=== PATIENT | female | born 1945 | race Caucasian/White ===

== ENCOUNTER 2020-10-20 07:49 | Outpatient (REF) | payer MEDICARE, SELFPAY ==
--- NOTE | ~2020-10-20 | XR_ITS ---
EXAMINATION: XR KNEES, STANDING AP XR KNEE, LEFT CLINICAL INFORMATION: Knee pain. COMPARISON: Standing AP knees 10/02/2015, portable right knee 01/23/2016. TECHNIQUE: Standing AP view of both knees is performed along with axial and axial patella views of the left knee. FINDINGS: LEFT: No fracture, dislocation, or destructive process. There is likely trace fluid suprapatellar bursa. Hoffa's fat pad appears normal. There are tricompartment osteoarthritic changes, greatest medial knee joint compartment with joint narrowing and mild subchondral sclerosis and osteophytes femoral condyles and tibial plateau. There is chondrocalcinosis involving the menisci. No definite erosive change. Axial view patella shows no lateralization or tilting. There is spurring at the quadriceps insertion patella and at the origin of the patellar tendon. The deep infrapatellar recess is preserved. RIGHT: There is a hinged total knee arthroplasty. The hardware is intact. There is no destructive process or osteolysis. XR/XR knee LT 2V IMPRESSION: LEFT: Tricompartment osteoarthritis with meniscal chondrocalcinosis and probable trace suprapatellar effusion. RIGHT: Hinged total knee arthroplasty. Hardware intact. No destructive process.
--- NOTE | ~2020-10-20 | XR_ITS ---
EXAMINATION: XR KNEES, STANDING AP XR KNEE, LEFT CLINICAL INFORMATION: Knee pain. COMPARISON: Standing AP knees 10/02/2015, portable right knee 01/23/2016. TECHNIQUE: Standing AP view of both knees is performed along with axial and axial patella views of the left knee. FINDINGS: LEFT: No fracture, dislocation, or destructive process. There is likely trace fluid suprapatellar bursa. Hoffa's fat pad appears normal. There are tricompartment osteoarthritic changes, greatest medial knee joint compartment with joint narrowing and mild subchondral sclerosis and osteophytes femoral condyles and tibial plateau. There is chondrocalcinosis involving the menisci. No definite erosive change. Axial view patella shows no lateralization or tilting. There is spurring at the quadriceps insertion patella and at the origin of the patellar tendon. The deep infrapatellar recess is preserved. RIGHT: There is a hinged total knee arthroplasty. The hardware is intact. There is no destructive process or osteolysis. XR/XR knee standing BI IMPRESSION: LEFT: Tricompartment osteoarthritis with meniscal chondrocalcinosis and probable trace suprapatellar effusion. RIGHT: Hinged total knee arthroplasty. Hardware intact. No destructive process.
== END 2020-10-20 07:50 | disposition home or self-care (01) ==
LOC: HO.HOSX 07:49
PROVIDERS: Visit Provider Orthopaedic Surgery
DX: Z13.89 Encounter for screening for other disorder (principal)

== ENCOUNTER → 2020-10-23 11:59 | Outpatient (BNVA) | payer MEDICARE, SELFPAY | PROVIDERS: PCP Internal Medicine; Visit Provider Orthopaedic Surgery | DX: M17.12 Unilateral primary osteoarthritis, left knee (principal); Z96.652 Presence of left artificial knee joint | CPT/HCPCS: 73560; 73565; 99202 ==

== ENCOUNTER → 2020-12-21 10:15 | Outpatient (BNVA) | payer MEDICARE, SELFPAY | PROVIDERS: Visit Provider Orthopaedic Surgery | DX: M17.12 Unilateral primary osteoarthritis, left knee (principal) | CPT/HCPCS: 20610; 99212; J1100 ==

== ENCOUNTER → 2021-07-11 12:32 | Outpatient (BNVA) | payer MEDICARE, SELFPAY | PROVIDERS: Visit Provider Orthopaedic Surgery | DX: Z13.89 Encounter for screening for other disorder (principal) ==

== ENCOUNTER 2021-08-09 | Outpatient (REF) | payer MEDICARE, SELFPAY ==
--- NOTE | 2021-07-11 13:58 | ECG_ITS ---
Test Reason : PREOP Blood Pressure : / mmHG Vent. Rate : 069 BPM Atrial Rate : 069 BPM P-R Int : 192 ms QRS Dur : 084 ms QT Int : 432 ms P-R-T Axes : 005 -10 018 degrees QTc Int : 462 ms Normal sinus rhythm Normal ECG When compared with ECG of 12-DEC-2015 15:25, No significant change was found Referred By: Adriel Gardner Electronically Signed By:MELINDA GREER
[2021-07-11 14:18] LABS: MANUAL DIFF FLAG NO
[2021-07-11 14:58] LABS: Basophils Absolute Auto 0.1 X10*3/uL (0.0-0.2); Basophils Percent Auto 1.1 % (0-2); Eosinophils Absolute Auto 0.5 X10*3/uL (0.0-0.4); Eosinophils Percent Auto 7.6 % (0-4); Hemoglobin 11.9 g/dl (12.0-16.0); Imm Gran Abs Auto 0.02 X10*3/uL (0.00-0.03); Imm Gran Pct Auto 0.3 % (0.0-0.4); Lymphocytes Absolute Auto 1.4 X10*3/uL (1.2-4.9); Lymphocytes Percent Auto 21.6 % (20-40); Mean Corpuscular HGB Conc 32.2 g/dl (31.0-35.0); Mean Corpuscular Hemoglobin 27.8 pg (27.0-33.0); Mean Corpuscular Volume 86.4 fL (80.0-98.0); Mean Platelet Volume 10.2 fL (9.4-12.3); Monocytes Absolute Auto 0.5 X10*3/uL (0.1-1.2); Monocytes Percent Auto 8.4 % (2-11); Neutrophils Absolute Auto 3.8 x10*3/uL (2.0-8.3); Platelet Count 200 X10*3/uL (160-400); Red Blood Count 4.28 X10*6/uL (4.20-5.50); Red Cell Distribution Width 12.7 % (11.0-16.0); White Blood Count 6.3 X10*3/uL (4.8-10.8)
[2021-07-11 15:21] LABS: Anion Gap 12 (12-20); Blood Urea Nitrogen 13 mg/dL (9-16); Calcium 9.9 mg/dL (8.4-10.2); Carbon Dioxide 29 mmol/L (22-29); Chloride 101 mmol/L (96-108); Estimated Glomerular Filt Rate > 60; Glucose Random 79 mg/dL (60-115); Potassium 4.4 mmol/L (3.3-5.1); Sodium 138 mmol/L (135-145)
[2021-08-09 13:11] VITALS: BP 166/88; PULSE 74; RESP 20; O2SAT 96; BMI 31.9
--- NOTE | 2021-08-09 13:26 | HO.ANESPROP2 ---
HPI - Anesthesia Eval Consult details Narrative: 75yo F for Left Knee Replacement Total PCP cleared Interstitial fibrosis and Cardiomegaly (new) on CXR. Reviewed with Dr Kenny. Needs pulmo input and echo. [facility] Active Problems Active Problems: All Active Problems (Updated 08/09/21 @ 13:09 by Kathy Munson RN) Primary osteoarthritis of left knee (Acute) Past Medical History Medical History (Updated 08/09/21 @ 13:09 by Kathy Munson RN) Cardiomegaly Cough COVID-19 vaccine series completed Dislocated shoulder Elevated cholesterol History of prior cigarette smoking HTN (hypertension) Hx of basal cell carcinoma Nasal fracture Osteoarthritis Torn rotator cuff Vertigo Family History Family history of problems with anesthesia: No Surgical History Surgical History History of total right knee replacement (TKR) History of Problems with Anesthesia: No Social History Social History Are you a primary manager progressive care to a significant other at home: No Do you presently have visiting nurse or other home services: No Patient Tobacco Use Status: Former Tobacco user Quit Date: age 35 Tobacco use type: Cigarette Advance Directives Date on File: 05/31/21 Current occupational status: retired Current occupation: right handed. Narrative Narrative: Recent URI with nasal congestion, dry cough. No fever. COVID antigen test Negative No CP/SOB within limits of pain Meds Allergies Allergy/AdvReac Type Severity Reaction Status Date / Time hydromorphone [From Dilaudid] AdvReac Intermediate nausea/vomiting/flushed Verified 08/09/21 12:55 skin Home Medications Medication Instructions Recorded Confirmed Last Taken Type acetaminophen 650 mg 650 mg PO Q12H 10/23/20 08/09/21 Unknown History tablet,extended release (Tylenol 8 Hour) hydrochlorothiazide 12.5 mg capsule 12.5 mg PO DAILY 10/23/20 08/09/21 Unknown History ibuprofen 400 mg tablet 400 mg PO BID tab 10/23/20 08/09/21 Unknown History docusate sodium 100 mg capsule 100 mg PO DAILY 08/09/21 08/09/21 Unknown History lisinopril 40 mg tablet 1 tab PO DAILY 08/09/21 08/09/21 Unknown History metoprolol succinate 25 mg 1 tab PO DAILY 08/09/21 08/09/21 Unknown History tablet,extended release 24 hr rosuvastatin 10 mg tablet 1 tab PO DAILY 08/09/21 08/09/21 Unknown History Exam Exam Date and Time: August 09, 2021 1326 Height,Weight and Vital Signs: Height 5 ft 4 in Weight 84.368 kg Last Vital Signs Pulse 74 08/09/21 13:11 Resp 20 08/09/21 13:11 BP 166/88 H 08/09/21 13:11 Pulse Ox 96 08/09/21 13:11 Pertinent Lab Results Pertinent Lab Results: Laboratory Tests 07/11/21 07/11/21 14:16 14:16 WBC 6.3 RBC 4.28 Hgb 11.9 L Hct 37.0 MCV 86.4 MCH 27.8 MCHC 32.2 RDW 12.7 Plt Count 200 MPV 10.2 Immature Gran % (Auto) 0.3 Neut % (Auto) 61.0 Lymph % (Auto) 21.6 [place] % (Auto) 8.4 Eos % (Auto) 7.6 H Baso % (Auto) 1.1 Lymph # (Auto) 1.4 [place] # (Auto) 0.5 Eos # (Auto) 0.5 H Baso # (Auto) 0.1 Abs Immat Gran (auto) 0.02 Absolute Neuts (auto) 3.8 Absolute Nucleated RBC 0.000 Nucleated RBC % (auto) 0.0 Sodium 138 Potassium 4.4 Chloride 101 Carbon Dioxide 29 Anion Gap 12 BUN 13 Creatinine 0.81 Estim Creat Clear Calc TNP Estimated GFR > 60 Random Glucose 79 Calcium 9.9 Narrative Narrative: CXR 07/2021 Frontal and lateral views of the chest were performed. Cardiomegaly is noted. Interstitial fibrosis unchanged. Mediastinal and hilar structures are normal Osseous structures are intact. EKG 06/2021 Vent. Rate : 069 BPM ? ? Atrial Rate : 069 BPM ?? P-R Int : 192 ms? QRS Dur : 084 ms ? ? QT Int : 432 ms ? ? ? P-R-T Axes : 005 -10 018 degrees ?? QTc Int : 462 ms ? Normal sinus rhythm Normal ECG When compared with ECG of 12-DEC-2015 15:25, No significant change was found Airway Mallampati Class: III TM Dist: >3cm Neck ROM: Full Denture: Upper Partial: Lower Heart: RRR Lungs: CTAB Assessment and Plan Assessment Anesthesia Assessment: Anesthesia Plan Discussed and PAT Visit Final Anesthetic Review Family History of Problems with Anesthesia: No History of Problems with Anesthesia: No
[2021-08-09 16:46] LABS: MRSA Nasal PCR NEGATIVE (Negative); SA Nasal PCR POSITIVE (Negative)
== END 2021-08-09 00:01 ==
LOC: HO.PAT
PROVIDERS: Physician Assistant; Visit Provider Orthopaedic Surgery
DX: Z01.818 Encounter for other preprocedural examination (principal); Z01.810 Encounter for preprocedural cardiovascular examination; M19.90 Unspecified osteoarthritis, unspecified site
CPT/HCPCS: 36415; 80048; 85025; 86850; 86900; 86901; 87640; 87641; 93005

== ENCOUNTER → 2021-08-09 11:09 | Outpatient (BNVA) | payer MEDICARE, SELFPAY | PROVIDERS: PCP Student in an Organized Health Care Education/Training Program; Visit Provider Physician Assistant | DX: Z01.818 Encounter for other preprocedural examination (principal); M17.12 Unilateral primary osteoarthritis, left knee | CPT/HCPCS: 99212 ==

== ENCOUNTER → 2021-12-27 10:42 | Outpatient (BNVA) | payer MEDICARE, SELFPAY | PROVIDERS: PCP Student in an Organized Health Care Education/Training Program; Visit Provider Physician Assistant | DX: Z01.818 Encounter for other preprocedural examination (principal); M17.12 Unilateral primary osteoarthritis, left knee | CPT/HCPCS: 99212 ==

== ENCOUNTER 2022-01-01 11:18 | Inpatient (IN) | payer MEDICARE, SELFPAY ==
[2021-12-18 12:01] VITALS: BP 149/68; PULSE 71; RESP 20; O2SAT 97; BMI 33.5
--- NOTE | 2021-12-18 12:14 | HO.ANESPROP2 ---
Documented by User: Nica Herring NP 12/31/21 09:17 HPI - Anesthesia Eval Consult details Narrative: 76yo F for Left Knee Replacement Total Rescheduled from 06/2021 d/t new findings of ILD and cardiomegaly on CXR. Pulmo w/u shows ILD of no definite etiology. Questioning autoimmune factors. But clear to proceed with surgery. Pt has completed 12 weeks of pulmonary rehab and is able to achieve >10 METS with regular exercise PCP cleared [facility] Active Problems Active Problems: All Active Problems (Updated 12/18/21 @ 12:00 by Kathy Munson RN) Primary osteoarthritis of left knee (Acute) Past Medical History Medical History Cardiomegaly Cough COVID-19 vaccine series completed Dislocated shoulder Elevated cholesterol History of prior cigarette smoking HTN (hypertension) Hx of basal cell carcinoma Hx of skin cancer, basal cell Interstitial lung disease Nasal fracture Osteoarthritis Torn rotator cuff Vertigo Family History Family history of problems with anesthesia: No Surgical History Surgical History History of total right knee replacement (TKR) History of Problems with Anesthesia: No Social History Social History Are you a primary ambulatory care nurse to a significant other at home: No Do you presently have visiting nurse or other home services: No Patient Tobacco Use Status: Former Tobacco user Quit Date: age 42's Tobacco use type: Cigarette Years Smoked: 24 Use of substances other than those prescribed or required for medical reasons: No Have you been hit, kicked, punched, or otherwise hurt by someone within the past year? If so, by whom?: No Are you DNR?: No Advance Directives: Yes Advance Directives Information Provided: Yes Advance Directives on File: Yes Advance Directives Date on File: 05/31/21 Recently lost weight without trying: No Eating poorly because of decreased appetite: No Nutrition Risks: No Nutritional Risk Poor oral hygiene: No (full upper & partial lower denture) Current occupational status: retired Current occupation: right handed. Narrative Narrative: No recent illness No CP with exercise. No increased SOB. Baseline SMITH with pulmonary rehab x 12 weeks, treadmill for >20 mins Meds Allergies Allergy/AdvReac Type Severity Reaction Status Date / Time hydromorphone [From Dilaudid] AdvReac Intermediate nausea/vomiting/flushed Verified 12/27/21 10:52 skin (IV form) Home Medications Medication Instructions Recorded Confirmed Last Taken Type acetaminophen 650 mg 650 mg PO Q12H 10/23/20 12/18/21 Unknown History tablet,extended release (Tylenol 8 Hour) hydrochlorothiazide 12.5 mg capsule 12.5 mg PO DAILY 10/23/20 12/18/21 Unknown History ibuprofen 400 mg tablet 400 mg PO BID 10/23/20 12/18/21 Unknown History docusate sodium 100 mg capsule 100 mg PO DAILY 08/09/21 12/18/21 Unknown History lisinopril 40 mg tablet 1 tab PO DAILY 08/09/21 12/18/21 Unknown History metoprolol succinate 25 mg 1 tab PO DAILY 08/09/21 12/18/21 01/01/22 History tablet,extended release 24 hr rosuvastatin 10 mg tablet 1 tab PO DAILY 08/09/21 12/18/21 Unknown History chlorpheniramine-acetaminophen 2 1 tab PO DAILY 12/18/21 12/18/21 Unknown History mg-325 mg tablet (Coricidin HBP Cold and Flu) Exam Exam Date and Time: December 18, 2021 1214 Height,Weight and Vital Signs: Height 5 ft 2 in Weight 83.234 kg Last Vital Signs Pulse 71 12/18/21 12:01 Resp 20 12/18/21 12:01 BP 149/68 H 12/18/21 12:01 Pulse Ox 97 12/18/21 12:01 O2 Del Method 12/18/21 12:01 Pertinent Lab Results Pertinent Lab Results: 12/07/21 labs at outside facility BMP wnl except creat @ 1.12 CBC wnl TSH wnl Narrative Narrative: EKG 12/2021 Vent. Rate : 072 BPM ? ? Atrial Rate : 072 BPM ?? P-R Int : 192 ms? QRS Dur : 090 ms ? ? QT Int : 436 ms ? ? ? P-R-T Axes : 016 -06 012 degrees ?? QTc Int : 477 ms ? Normal sinus rhythm Minimal voltage criteria for LVH, may be normal variant ( [place] product ) Borderline ECG When compared with ECG of 11-JUL-2021 14:04, No significant change was found ECHO 08/2021 1. Nml LV vent cavity size and systolic function. Hyperdynamic contractility. 2. Quantative 2D LVEF 73%. Nml diastolic parameters. 3. Nml RV size and systolic function. RVSP could not be estimated. 4. LA is normal in size. RA is mildly dilated. 5. No signif valve abnormalities (Trace regurg of all valves) 6. No pericardial effusion 7. Aortic root and proximal ascending aorta are nml in size CXR 07/2021 Frontal and lateral views of the chest were performed. Cardiomegaly is noted. Interstitial fibrosis unchanged. Mediastinal and hilar structures are normal Osseous structures are intact. Per pulmo clearance, PFT = moderate diffusion capacity when corrected for [place] Airway Mallampati Class: III TM Dist: >3cm Neck ROM: Full Denture: Upper Partial: Lower Heart: RRR Lungs: LLL coarse, otherwise clear Assessment and Plan Assessment Anesthesia Assessment: Anesthesia Plan Discussed and PAT Visit Final Anesthetic Review Family History of Problems with Anesthesia: No History of Problems with Anesthesia: No Documented by User: Calderon Kenny MD 01/01/22 16:11 [facility] Past Medical History Medical History Cardiomegaly Cough COVID-19 vaccine series completed Dislocated shoulder Elevated cholesterol History of prior cigarette smoking HTN (hypertension) Hx of basal cell carcinoma Hx of skin cancer, basal cell Interstitial lung disease Nasal fracture Osteoarthritis Torn rotator cuff Vertigo Functional capacity: independent ambulation Surgical History Surgical History History of total right knee replacement (TKR) Social History Social History Are you a primary ambulatory care nurse to a significant other at home: No Do you presently have visiting nurse or other home services: No Patient Tobacco Use Status: Former Tobacco user Quit Date: age 42's Tobacco use type: Cigarette Years Smoked: 24 Use of substances other than those prescribed or required for medical reasons: No Have you been hit, kicked, punched, or otherwise hurt by someone within the past year? If so, by whom?: No Are you DNR?: No Advance Directives: Yes Advance Directives Information Provided: Yes Advance Directives on File: Yes Advance Directives Date on File: 05/31/21 Recently lost weight without trying: No Eating poorly because of decreased appetite: No Nutrition Risks: No Nutritional Risk Poor oral hygiene: No (full upper & partial lower denture) Current occupational status: retired Current occupation: right handed. Meds Allergies Allergy/AdvReac Type Severity Reaction Status Date / Time hydromorphone [From Dilaudid] AdvReac Intermediate nausea/vomiting/flushed Verified 12/27/21 10:52 skin (IV form) Home Medications Medication Instructions Recorded Confirmed Last Taken Type acetaminophen 650 mg 650 mg PO Q12H 10/23/20 12/18/21 Unknown History tablet,extended release (Tylenol 8 Hour) hydrochlorothiazide 12.5 mg capsule 12.5 mg PO DAILY 10/23/20 12/18/21 Unknown History ibuprofen 400 mg tablet 400 mg PO BID 10/23/20 12/18/21 Unknown History docusate sodium 100 mg capsule 100 mg PO DAILY 08/09/21 12/18/21 Unknown History lisinopril 40 mg tablet 1 tab PO DAILY 08/09/21 12/18/21 Unknown History metoprolol succinate 25 mg 1 tab PO DAILY 08/09/21 12/18/21 01/01/22 History tablet,extended release 24 hr rosuvastatin 10 mg tablet 1 tab PO DAILY 08/09/21 12/18/21 Unknown History chlorpheniramine-acetaminophen 2 1 tab PO DAILY 12/18/21 12/18/21 Unknown History mg-325 mg tablet (Coricidin HBP Cold and Flu) Exam Airway Loose/Missing/Broken Teeth: Yes Assessment and Plan Assessment Anesthesia Assessment: Chart Reviewed Final Anesthetic Review NPO: Yes ASA Class: III Final Preanesthetic Review: Meds/Allgs Chart Reviewed, Consent Obtained/Reviewed and Anes Risks/Benef Reviewed Patient Risk: Intermediate Procedure Risk: Intermediate Anesthetic Plan Anesthetic Plan: Spinal and Regional Block Disposition: Standard PACU and Inp. Admit - Standard Bed
--- NOTE | 2021-12-18 13:28 | ECG_ITS ---
Test Reason : PRE OP Blood Pressure : / mmHG Vent. Rate : 072 BPM Atrial Rate : 072 BPM P-R Int : 192 ms QRS Dur : 090 ms QT Int : 436 ms P-R-T Axes : 016 -06 012 degrees QTc Int : 477 ms Normal sinus rhythm Minimal voltage criteria for LVH, may be normal variant ( [place] product ) Borderline ECG When compared with ECG of 11-JUL-2021 14:04, No significant change was found Referred By: Adriel Gardner Electronically Signed By:NELIDA ROACH MD
[2021-12-18 15:13] LABS: MRSA Nasal PCR NEGATIVE (Negative); SA Nasal PCR NEGATIVE (Negative)
[2022-01-01] VITALS (12 sets, daily range): BP systolic 92–164; BP diastolic 50–78; PULSE 66–98; RESP 16–20; TEMP 35.3–37.3; O2SAT 94–97
--- NOTE | ~2022-01-01 | XR_ITS ---
EXAMINATION: XR KNEE, LEFT CLINICAL INFORMATION: Left total knee arthroplasty. COMPARISON: Radiographs left knee 10/23/2020. TECHNIQUE: Left knee is imaged portably in AP and coarse table lateral projections for 2 views. FINDINGS: Patient is status post hinged left knee arthroplasty. The hardware is intact. There is no fracture or dislocation or destructive process. Scattered subcutaneous gas is present as expected as well as overlying skin best. XR/XR knee LT 2V IMPRESSION: Status post left knee arthroplasty. Hardware intact. No fracture or dislocation.
[2022-01-01 11:35] LABS: Hematocrit 35.4 % (37.0-47.0); Hemoglobin 11.9 g/dl (12.0-16.0)
[2022-01-01 11:42] LABS: COVID-19 Test Negative (Negative); IDNOW Serial# 16C4AD1C
[2022-01-01] MEDS: Lactated Ringers 1,000 ML 100 ML IVCONT ×2 (12:20→17:43)
--- NOTE | 2022-01-01 15:12 | P.BOP_ITS ---
Brief Operative Note Date of Service: 01/01/22 Pre-op diagnosis: Left knee OA Post-op diagnosis: same Procedure: Left TKA Implants: Jarrell Triathalon cemented posterior stabilized 07/19/10 Surgeon: Adriel Gardner MD Anesthesia: regional and spinal Was an Curtain Roller Assembler used for this Procedure?: Yes Curtain Roller Assembler: Pro [employer] Estimated blood loss (mL): 200 IV fluids (mL): 1,000 Pathology: other Condition: stable Disposition: PACU
[2022-01-01] MEDS: oxyCODONE HCl Immed Release 5 MG TABLET 10 MG PO (17:37)
[2022-01-01] MEDS: 0.9 % Sodium Chloride Flush 3 ML SYRINGE IVFLUSH ×2 (17:44→20:25)
--- NOTE | 2022-01-01 18:25 | P.CONHOSP_ITS ---
History of Present Illness Data of Consult Service Date: 01/01/22 Primary Care Provider: Raymond Walters MD [facility] Reason for consult: medical management 76 year old female with HTN on lisinopril, HCTZ, interstitial lung disease, HLD on Rosovostatin, OA of left Knee that was no longer amenable to conservative management. She underwent elective left TKA today and is doing well postoperatively. No acute issues at this time. Review of Systems Review of Systems: Gen: no fever Resp: no sob, no cough CV: no chest, no SMITH, no leg edema GI: No n/v, no abd pain Neuro: No confusion Yes all other systems are reviewed and are negative [facility] Medical History (Updated 01/01/22 @ 18:29 by Josh Kaplan MD) Cardiomegaly Cough COVID-19 vaccine series completed Dislocated shoulder Elevated cholesterol History of prior cigarette smoking HTN (hypertension) Hx of basal cell carcinoma Hx of skin cancer, basal cell Interstitial lung disease Nasal fracture Osteoarthritis Torn rotator cuff Vertigo Functional capacity: independent ambulation Surgical History History of total right knee replacement (TKR) Social History Are you a primary managed care specialist to a significant other at home: No Do you presently have visiting nurse or other home services: No Patient Tobacco Use Status: Former Tobacco user Quit Date: age 42's Tobacco use type: Cigarette Years Smoked: 24 Use of substances other than those prescribed or required for medical reasons: No Have you been hit, kicked, punched, or otherwise hurt by someone within the past year? If so, by whom?: No Are you DNR?: No Advance Directives: Yes Advance Directives Information Provided: Yes Advance Directives on File: Yes Advance Directives Date on File: 05/31/21 Recently lost weight without trying: No Eating poorly because of decreased appetite: No Nutrition Risks: No Nutritional Risk Poor oral hygiene: No (full upper & partial lower denture) Current occupational status: retired Current occupation: right handed. Meds Allergies Allergy/AdvReac Type Severity Reaction Status Date / Time hydromorphone [From Dilaudid] AdvReac Intermediate nausea/vomiting/flushed Verified 12/27/21 10:52 skin (IV form) Active Medications: Current Medications Acetaminophen (Acetaminophen 325 Mg Tablet) 650 mg PO Q6H PRN PRN Reason: Pain, Mild (Pain Scale 1-3) Celecoxib (Celecoxib 200 Mg Capsule) 200 mg PO BID [facility] Docusate Sodium (Docusate Sodium 100 Mg Capsule) 100 mg PO BID [facility] Hydrochlorothiazide (Hydrochlorothiazide 12.5 Mg Tablet) 12.5 mg PO DAILY [facility]; Protocol Lactated Ringer's (Lr) 1,000 mls @ 100 mls/hr IVCONT .Q10H [facility] Last Admin: 01/01/22 17:43 Dose: 100 mls/hr Cefazolin Sodium/Dextrose (Ancef) 2 gm in 50 mls @ 100 mls/hr IV POSTOP ONE Stop: 01/01/22 19:29 Metoprolol Succinate (Metoprolol Succinate Er 25 Mg Tab.Er.24h) 25 mg PO DAILY [facility]; Protocol Non-Formulary Medication (Chlorpheniramine-Acetaminophen [Coricidin Hbp Cold And Flu]) 1 tab PO DAILY [facility] Ondansetron HCl (Ondansetron Hcl 4 Mg/2 Ml Vial) 4 mg IVPUSH Q8H PRN PRN Reason: Nausea and Vomiting Oxycodone HCl (Oxycodone Hcl Immed Release 5 Mg Tablet) 10 mg PO Q4H PRN PRN Reason: Pain, Moderate (Pain Scale 4-6 Last Admin: 01/01/22 17:37 Dose: 10 mg Oxycodone HCl (Oxycodone Hcl Er 10 Mg Tab.Er.12h) 10 mg PO BID [facility] Sodium Chloride (0.9 % Sodium Chloride Flush 3 Ml Syringe) 3 ml IVFLUSH QSHIFT [facility] Last Admin: 01/01/22 17:44 Dose: 3 ml Home Medications Medication Instructions Recorded Confirmed Last Taken Type acetaminophen 650 mg 650 mg PO Q12H 10/23/20 12/18/21 Unknown History tablet,extended release (Tylenol 8 Hour) hydrochlorothiazide 12.5 mg capsule 12.5 mg PO DAILY 10/23/20 12/18/21 Unknown History ibuprofen 400 mg tablet 400 mg PO BID 10/23/20 12/18/21 Unknown History docusate sodium 100 mg capsule 100 mg PO DAILY 08/09/21 12/18/21 Unknown History lisinopril 40 mg tablet 1 tab PO DAILY 08/09/21 12/18/21 Unknown History metoprolol succinate 25 mg 1 tab PO DAILY 08/09/21 12/18/21 01/01/22 History tablet,extended release 24 hr rosuvastatin 10 mg tablet 1 tab PO DAILY 08/09/21 12/18/21 Unknown History chlorpheniramine-acetaminophen 2 1 tab PO DAILY 12/18/21 12/18/21 Unknown Hist ory mg-325 mg tablet (Coricidin HBP Cold and Flu) Physical Exam Vital Signs and Narrative: Vital Signs: Last Vital Signs Temp 95.6 F L 01/01/22 17:20 Pulse 66 01/01/22 17:20 Resp 18 01/01/22 17:20 BP 121/57 L 01/01/22 17:20 Pulse Ox 97 01/01/22 17:20 O2 Del Method 01/01/22 17:20 BMI result Body Mass Index 33.5 Const: Other: General: AO X 3, no acute distress Resp: CTA bilateral CVS: S1,S2,RRR GI: +BS, NT, no distention Skin: No rash Neuro: motor grossly intact Psych: appropriate affect Results Labs CBC and Chem 7: 01/01/22 11:30 Labs: Laboratory Results - last 24 hr 01/01/22 11:21 COVID-19 ([facility]) Negative COVID-19 Clin Com See Note Imaging Radiologist's Impressions: Impressions Knee X-Ray 01/01/22 16:00 IMPRESSION: Status post left knee arthroplasty. Hardware intact. No fracture or dislocation. Assessment and Plan (1) HTN (hypertension): Status: Acute (2) Primary osteoarthritis of left knee: Status: Acute Plan 76/F with HTN, HLD, ILD, OA of knee s/p L TKR today 1/ HTN--BP presently on lower side, restart home meds tomorrow if BP high 2/HLD-continue rosuvastatin or equivalent 3/s/p LTK management by surgery 4/ ILD--no sob, goes to pulmonary rehab
[2022-01-01] MEDS: oxyCODONE HCl ER 10 MG TAB.ER.12H PO (20:24)
[2022-01-01] MEDS: Docusate Sodium 100 MG CAPSULE PO (20:24)
[2022-01-01] MEDS: Celecoxib 200 MG CAPSULE PO (20:24)
[2022-01-01] MEDS: ceFAZolin Sodium/Dextrose,Iso 2 GM/50 ML PIGGYBACK IV (20:24)
[2022-01-02] VITALS (8 sets, daily range): BP systolic 108–148; BP diastolic 55–74; PULSE 80–90; RESP 17–18; TEMP 36.2–37.2; O2SAT 92–95
[2022-01-02] MEDS: oxyCODONE HCl Immed Release 5 MG TABLET 10 MG PO ×3 (02:49→13:04)
[2022-01-02] MEDS: Lactated Ringers 1,000 ML 100 ML IVCONT ×2 (03:45→13:54)
[2022-01-02 06:55] LABS: MANUAL DIFF FLAG NO
[2022-01-02 06:59] LABS: Basophils Percent Auto 0.4 % (0-2); Eosinophils Absolute Auto 0.2 X10*3/uL (0.0-0.4); Eosinophils Percent Auto 1.9 % (0-4); Hemoglobin 10.3 g/dl (12.0-16.0); Imm Gran Abs Auto 0.03 X10*3/uL (0.00-0.03); Imm Gran Pct Auto 0.4 % (0.0-0.4); Lymphocytes Absolute Auto 0.5 X10*3/uL (1.2-4.9); Lymphocytes Percent Auto 6.3 % (20-40); Mean Corpuscular HGB Conc 33.2 g/dl (31.0-35.0); Mean Corpuscular Hemoglobin 28.4 pg (27.0-33.0); Mean Corpuscular Volume 85.4 fL (80.0-98.0); Mean Platelet Volume 10.1 fL (9.4-12.3); Monocytes Absolute Auto 0.5 X10*3/uL (0.1-1.2); Monocytes Percent Auto 6.1 % (2-11); Neutrophils Absolute Auto 7.1 x10*3/uL (2.0-8.3); Neutrophils Percent Auto 84.9 % (45-73); Platelet Count 153 X10*3/uL (160-400); Red Blood Count 3.63 X10*6/uL (4.20-5.50); Red Cell Distribution Width 12.4 % (11.0-16.0); White Blood Count 8.4 X10*3/uL (4.8-10.8)
[2022-01-02 07:16] LABS: Anion Gap 15 (12-20); Blood Urea Nitrogen 13 mg/dL (9-16); Carbon Dioxide 28 mmol/L (22-29); Chloride 99 mmol/L (96-108); Creatinine Clr Calc Pharmacy 58.7; Estimated Glomerular Filt Rate > 60; Glucose Fasting 111 mg/dL (60-99); Potassium 4.7 mmol/L (3.3-5.1); Sodium 137 mmol/L (135-145)
--- NOTE | 2022-01-02 07:33 | PHA.MEDREC ---
Pharmacy Consult ? Medication Reconciliation Pharmacy has completed the medication reconciliation. Reviewed med rec done by nursing (Kathy).
[2022-01-02] MEDS: Docusate Sodium 100 MG CAPSULE PO ×2 (07:36→21:40)
[2022-01-02] MEDS: hydroCHLOROthiazide 12.5 MG TABLET PO (07:36)
[2022-01-02] MEDS: Celecoxib 200 MG CAPSULE PO ×2 (07:36→21:39)
[2022-01-02] MEDS: Metoprolol Succinate ER 25 MG TAB.ER.24H PO (07:37)
[2022-01-02] MEDS: Atorvastatin Calcium 40 MG TABLET PO (07:37)
[2022-01-02] MEDS: oxyCODONE HCl ER 10 MG TAB.ER.12H PO ×2 (07:37→21:40)
--- NOTE | 2022-01-02 08:45 | P.PNOP_ITS ---
Subjective Subjective Date of Service: 01/02/22 Interval history: POD 1 s/p LT TKA no overnight events' feels her pain is not well managed denies sob, palpitations, chest pain. Physical Exam Vital Signs: Vital Signs: Last Vital Signs Temp 98.9 F 01/02/22 07:27 Pulse 90 01/02/22 07:27 Resp 18 01/02/22 07:27 BP 139/74 01/02/22 07:27 Pulse Ox 94 01/02/22 07:27 O2 Del Method 01/02/22 07:27 BMI result Body Mass Index 33.5 Const: General: cooperative, healthy appearing and no acute distress Resp: Effort & Inspection: normal respiratory effort and able to speak in complete sentences Cardio: Rate: regular rate Peripheral pulses: Peripheral pulses 2+ throughout GI: Palpation (GI): Soft to palpation Skin: General skin exam: no rashes or lesions noted Extrem: Other: bandage clean dry and intact. [place] intact. No erythema or joint effusion. Calf supple nontender. Neurovascularly intact. Procedures Date of Service Date of Service: 01/02/22 Progress Note: A&P Assessment and plan (1) History of arthroplasty of left knee: Status: Acute Assessment and Plan: * Continue pain mgmnt * Begin Aspirin for dvt ppx * begin PT for LT TKA * Dispo planning-Pending PT eval, pain mgmnt Time Spent With Patient Time: Total time spent is greater than 50% in coordination of care (as documented) at patient's floor/unit and/or counseling patient: Quality Stroke Does the patient have a stroke diagnosis?: No VTE Prior VTE?: No VTE Risk Level:: Surgical - very high VTE Device Contraindication: N/A - Device Ordered VTE Drug Contraindication: N/A - Med Ordered
--- NOTE | 2022-01-02 09:27 | MHC.CM.PN ---
Addendum entered by Madelin Stiles 01/02/22 09:33: NURSE LIAISON IS NOT ARRANGING FOR VNA REFERRAL SENT TO [facility] AT HOME [facility]IA [facility]. PATIENT AWARE. Original Note: PATIENT LIVES ALONE. SHE HAS A CANE, WALKER, AND SHOWER CHAIR IN THE HOME SHE TELLS THIS SATELLITE TV TECHNICIAN THAT NURSE LIAISON IS SETTING UP HER VNA WITH [facility] THIS SATELLITE TV TECHNICIAN REACHED OUT TO LIAISON TO CONFIRM. WAITING ANSWER. HCP IS ON FILE AND VERIFIED. COVID VACCINATED BROTHER [facility] WILL PROVIDE TRANSPORT HOME TOMORROW (01/03/22) IMM 01/02 IN CHART
[2022-01-02] MEDS: Ketorolac Tromethamine 15 MG/ML VIAL IVPUSH ×3 (09:39→21:41)
--- NOTE | 2022-01-02 11:15 | P.PNIM_ITS ---
Subjective Subjective Date of Service: 01/02/22 Interval History: f/u on medical consultation. Status post knee surgery Interval history: Doing well was having significant pain this morning 9.10, vital signs are otherwise stable. Review of Systems Pain in the operated knee. No fever or chill. No headache no shortness of breath no chest pain. Physical Exam Vital Signs: Vital Signs: Last Vital Signs Temp 98.9 F 01/02/22 07:27 Pulse 90 01/02/22 08:56 Resp 18 01/02/22 07:27 BP 139/74 01/02/22 08:56 Pulse Ox 94 01/02/22 08:56 O2 Del Method 01/02/22 07:27 BMI result Body Mass Index 33.5 Const: Other: General: AO X 3, no acute distress Resp: CTA bilateral CVS: S1,S2,RRR GI: +BS, NT, no distention Skin: No rash, dressing in place on the left knee. Neuro: motor grossly intact Psych: appropriate affect Objective Data Active Medications Acetaminophen (Acetaminophen 325 Mg Tablet) 650 mg PO Q6H PRN PRN Reason: Pain, Mild (Pain Scale 1-3) Aspirin (Aspirin 325 Mg Tablet) 325 mg PO BID [facility] Atorvastatin Calcium (Atorvastatin Calcium 40 Mg Tablet) 40 mg PO DAILY [facility] Last Admin: 01/02/22 07:37 Dose: 40 mg Documented By: MADELYN Celecoxib (Celecoxib 200 Mg Capsule) 200 mg PO BID [facility] Last Admin: 01/02/22 07:36 Dose: 200 mg Documented By: MADELYN Docusate Sodium (Docusate Sodium 100 Mg Capsule) 100 mg PO BID [facility] Last Admin: 01/02/22 07:36 Dose: 100 mg Documented By: MADELYN Hydrochlorothiazide (Hydrochlorothiazide 12.5 Mg Tablet) 12.5 mg PO DAILY [facility]; Protocol Last Admin: 01/02/22 07:36 Dose: 12.5 mg Documented By: MADELYN Lactated Ringer's (Lr) 1,000 mls @ 100 mls/hr IVCONT .Q10H [facility] Last Admin: 01/02/22 03:45 Dose: 100 mls/hr Documented By: BETSEY Ketorolac Tromethamine (Ketorolac Tromethamine 15 Mg/Ml Vial) 15 mg IVPUSH Q6H [facility] Last Admin: 01/02/22 09:39 Dose: 15 mg Documented By: MADELYN Metoprolol Succinate (Metoprolol Succinate Er 25 Mg Tab.Er.24h) 25 mg PO DAILY [facility]; Protocol Last Admin: 01/02/22 07:37 Dose: 25 mg Documented By: MADELYN Non-Formulary Medication (Chlorpheniramine-Acetaminophen [Coricidin Hbp Cold And Flu]) 1 tab PO DAILY [facility] Ondansetron HCl (Ondansetron Hcl 4 Mg/2 Ml Vial) 4 mg IVPUSH Q8H PRN PRN Reason: Nausea and Vomiting Oxycodone HCl (Oxycodone Hcl Immed Release 5 Mg Tablet) 10 mg PO Q4H PRN PRN Reason: Pain, Moderate (Pain Scale 4-6 Last Admin: 01/02/22 07:37 Dose: 10 mg Documented By: MADELYN Oxycodone HCl (Oxycodone Hcl Er 10 Mg Tab.Er.12h) 10 mg PO BID [facility] Last Admin: 01/02/22 07:37 Dose: 10 mg Documented By: MADELYN Sodium Chloride (0.9 % Sodium Chloride Flush 3 Ml Syringe) 3 ml IVFLUSH QSHIFT [facility] Last Admin: 01/02/22 07:40 Dose: Not Given Documented By: MADELYN Non-Admin Reason: IV Running Labs CBC & Chem 7: 01/02/22 05:55 01/02/22 05:55 Labs: Laboratory Results - last 24 hr 01/01/22 01/02/22 01/02/22 11:21 05:55 05:55 MCV 85.4 MCH 28.4 MCHC 33.2 RDW 12.4 Plt Count 153 L MPV 10.1 Immature Gran % (Auto) 0.4 Neut % (Auto) 84.9 H Lymph % (Auto) 6.3 L [place] % (Auto) 6.1 Eos % (Auto) 1.9 Baso % (Auto) 0.4 Lymph # (Auto) 0.5 L [place] # (Auto) 0.5 Eos # (Auto) 0.2 Baso # (Auto) 0.0 Abs Immat Gran (auto) 0.03 Absolute Neuts (auto) 7.1 Absolute Nucleated RBC 0.000 Nucleated RBC % (auto) 0.0 Anion Gap 15 Estim Creat Clear Calc 58.7 Estimated GFR > 60 Fasting Glucose 111 H Calcium 9.0 D COVID-19 (ADELA) Negative COVID-19 Clin Com See Note Assessment and Plan (1) History of arthroplasty of left knee: Status: Acute (2) HTN (hypertension): Status: Acute (3) Primary osteoarthritis of left knee: Status: Acute Plan 76/F with HTN, HLD, ILD, OA of knee s/p L TKR today 1/ HTN--BP presently within normal limits. Continue hydrochlorothiazide, metoprolol. Hold lisinopril 40 mg p.o. daily. Did does may be drastically lowered prior to discharge if her blood pressure continued to be within normal limit with the HCTZ and Metoprolol 2/HLD-continue rosuvastatin or equivalent 3/s/p LTK management by surgery 4/ ILD--no sob, goes to pulmonary rehab DVT p: ASA Need for inapatient: Defer to ortho Quality Stroke Does the patient have a stroke diagnosis?: No VTE Prior VTE?: No VTE Risk Level:: Surgical - very high VTE Device Contraindication: N/A - Device Ordered VTE Drug Contraindication: N/A - Med Ordered
[2022-01-02] MEDS: Aspirin 325 MG TABLET PO ×2 (13:05→21:40)
--- NOTE | 2022-01-02 16:05 | HO.POSTANES ---
Post Anesthesia Evaluation Post Anesthesia Evaluation Vital Signs: Vital Signs Temp Pulse Resp BP Pulse Ox O2 Del Method 01/02/22 14:06 84 148/66 H 95 01/02/22 11:54 97.8 F 84 17 148/66 H 95 Room Air 01/02/22 08:56 90 139/74 94 01/02/22 07:27 98.9 F 90 18 139/74 94 Room Air Anesthesia: General LMA Mental Status: Awake Pain Control: Satisfactory Nausea/Vomiting: None Hydration: Adequate Anesthesia-Related Issues: No Anes. Related Issues
[2022-01-03] MEDS: Ketorolac Tromethamine 15 MG/ML VIAL IVPUSH ×2 (02:18→07:36)
[2022-01-03] MEDS: Lactated Ringers 1,000 ML 100 ML IVCONT (02:22)
[2022-01-03 03:49] VITALS: BP 108/52; PULSE 77; RESP 18; TEMP 36.8; O2SAT 95
[2022-01-03 05:46] LABS: MANUAL DIFF FLAG NO
[2022-01-03 05:50] LABS: Basophils Percent Auto 0.4 % (0-2); Eosinophils Absolute Auto 0.4 X10*3/uL (0.0-0.4); Hematocrit 27.2 % (37.0-47.0); Hemoglobin 9.1 g/dl (12.0-16.0); Imm Gran Abs Auto 0.04 X10*3/uL (0.00-0.03); Imm Gran Pct Auto 0.5 % (0.0-0.4); Lymphocytes Absolute Auto 0.7 X10*3/uL (1.2-4.9); Lymphocytes Percent Auto 9.2 % (20-40); Mean Corpuscular HGB Conc 33.5 g/dl (31.0-35.0); Mean Corpuscular Hemoglobin 28.3 pg (27.0-33.0); Mean Corpuscular Volume 84.7 fL (80.0-98.0); Mean Platelet Volume 9.9 fL (9.4-12.3); Monocytes Absolute Auto 0.6 X10*3/uL (0.1-1.2); Monocytes Percent Auto 7.4 % (2-11); Neutrophils Absolute Auto 6.1 x10*3/uL (2.0-8.3); Neutrophils Percent Auto 77.5 % (45-73); Platelet Count 118 X10*3/uL (160-400); Red Blood Count 3.21 X10*6/uL (4.20-5.50); Red Cell Distribution Width 12.8 % (11.0-16.0); White Blood Count 7.8 X10*3/uL (4.8-10.8)
[2022-01-03 06:11] LABS: Anion Gap 13 (12-20); Blood Urea Nitrogen 13 mg/dL (9-16); Calcium 8.8 mg/dL (8.4-10.2); Carbon Dioxide 28 mmol/L (22-29); Chloride 98 mmol/L (96-108); Creatinine Clr Calc Pharmacy 54.2; Estimated Glomerular Filt Rate > 60; Glucose Fasting 92 mg/dL (60-99); Potassium 4.9 mmol/L (3.3-5.1); Sodium 134 mmol/L (135-145)
[2022-01-03] MEDS: hydroCHLOROthiazide 12.5 MG TABLET PO ×2 (07:32→07:34)
[2022-01-03] MEDS: Aspirin 325 MG TABLET PO (07:35)
[2022-01-03] MEDS: Atorvastatin Calcium 40 MG TABLET PO (07:35)
[2022-01-03] MEDS: Celecoxib 200 MG CAPSULE PO (07:35)
[2022-01-03] MEDS: Metoprolol Succinate ER 25 MG TAB.ER.24H PO (07:35)
[2022-01-03] MEDS: oxyCODONE HCl ER 10 MG TAB.ER.12H PO (07:36)
[2022-01-03] MEDS: Docusate Sodium 100 MG CAPSULE PO (07:36)
[2022-01-03 08:00] VITALS: BP 128/60; PULSE 85; RESP 17; TEMP 37.1; O2SAT 98
--- NOTE | 2022-01-03 08:48 | PM.DS ---
DS: Providers Provider Date of Service: 01/03/22 Date of admission: 01/01/22 11:18 Primary care physician: Raymond Walters MD Consults: 01/01/22 17:16 Consult to Hospitalist Routine Consulting Provider: Hospitalist Reason For Exam: medical management , cad DS: Diagnosis Discharge Diagnosis (1) History of arthroplasty of left knee: Status: Acute (2) HTN (hypertension): Status: Acute (3) Primary osteoarthritis of left knee: Status: Acute DS: Summary Hospital Course Hospital Course: The patient underwent a successful right total knee arthroplasty, they were transferred to PACU and then to the floor to recover. During their stay, their vitals were stable, afebrile at 98.2. Labs were unremarkable, H/H 9.1/27.2. POD 1 they were started on Aspirin 325mg po bid for DVT ppx, they also received Physical Therapy services twice a day. Prior to discharge, their dressing was changed, incision clean dry and intact, new Aquacel dressing applied and the plan was to be discharged home with VNA services. Time Spent with Patient Time attestation: Total time spent providing and/or coordinating discharge services: Discharge coordination time: Less than 30 minutes Quality: Safe Use of Opioids Does Pt have an Active Cancer Diagnosis on the Problem List?: No Quality: Stroke Does the patient have a stroke diagnosis?: No Physical Exam Vital Signs: Vital Signs: Last Vital Signs Temp 98.8 F 01/03/22 08:00 Pulse 85 01/03/22 08:00 Resp 17 01/03/22 08:00 BP 128/60 01/03/22 08:00 Pulse Ox 98 01/03/22 08:00 O2 Del Method 01/03/22 08:00 BMI result Body Mass Index 33.5 Const: General: cooperative, healthy appearing and no acute distress Resp: Effort & Inspection: normal respiratory effort and able to speak in complete sentences Cardio: Rate: regular rate Peripheral pulses: Peripheral pulses 2+ throughout GI: Palpation (GI): Soft to palpation Skin: Lesions: no lesions Rashes: no rashes Extrem: Other: Right knee incision site is clean, dry, and intact. [place] intact. No drainage. NEw Aquacel dressing applied. NVI. DS: Data Data Completed and Pending Pending studies at discharge: Pending at discharge 01/01/22 14:59 Surgical [PTH] Routine Labs on day of discharge: Laboratory Results - last 24 hr 01/03/22 01/03/22 05:35 05:35 WBC 7.8 RBC 3.21 L Hgb 9.1 L Hct 27.2 L MCV 84.7 MCH 28.3 MCHC 33.5 RDW 12.8 Plt Count 118 L MPV 9.9 Immature Gran % (Auto) 0.5 H Neut % (Auto) 77.5 H Lymph % (Auto) 9.2 L [place] % (Auto) 7.4 Eos % (Auto) 5.0 H Baso % (Auto) 0.4 Lymph # (Auto) 0.7 L [place] # (Auto) 0.6 Eos # (Auto) 0.4 Baso # (Auto) 0.0 Abs Immat Gran (auto) 0.04 H Absolute Neuts (auto) 6.1 Absolute Nucleated RBC 0.000 Nucleated RBC % (auto) 0.0 Sodium 134 L Potassium 4.9 Chloride 98 Carbon Dioxide 28 Anion Gap 13 BUN 13 Creatinine 0.91 Estim Creat Clear Calc 54.2 Estimated GFR > 60 Fasting Glucose 92 Calcium 8.8 Discharge Plan Discharge Patient Disposition: Home Health Service Discharge Diagnosis: LT TKA Referrals: Pro Good PA-C [Physician Can Worker] - 2 Weeks (01/17/22 1:45 [facility] [place] [facility] Pro Good PA-C[place] Discharge Medications: New oxycodone 10 mg tablet 10 mg PO Q4H PRN (Reason: Pain, Moderate (Pain Scale 4-6) 7 Days Qty: 42 0RF Rx Instructions: Partial Fill upon patient request. celecoxib 200 mg Capsule 200 mg PO BID 30 Days Qty: 60 2RF acetaminophen 325 mg Tablet 650 mg PO Q6H PRN (Reason: Pain, Mild (Pain Scale 1-3)) 30 Days Qty: 240 0RF aspirin 325 mg Tablet 325 mg PO BID 42 Days Qty: 84 0RF Continued docusate sodium 100 mg Capsule 100 mg PO DAILY metoprolol succinate 25 mg tablet extended release 24 hr 1 tab PO DAILY lisinopril 40 mg tablet 1 tab PO DAILY rosuvastatin 10 mg tablet 1 tab PO DAILY Coricidin HBP Cold and Flu 2-325 mg Tablet 1 tab PO DAILY hydrochlorothiazide 12.5 mg capsule 12.5 mg PO DAILY Discontinued ibuprofen 400 mg tablet 400 mg PO BID acetaminophen [Tylenol 8 Hour] 650 mg tablet extended release 650 mg PO Q12H Discharge Orders: Discharge Order (Routine); Ordered 01/03/22 Ordered By: Renu Hilario Diet: Regular diet Activity on Discharge: Use cane or walker Stand Alone Forms: Patient Portal Discharge page Care Plan Goals: Restore function of joint Health Concerns: none Plan of Treatment: Physical Therapy Pain management DVT prophylaxis Assessment: Physical Therapy for Total knee arthroplasty: WBAT, gait training, ROM 0-12, quad strength Limit stair climbing No showering, no tub bath-keep dressing clean, dry and intact No driving x6 weeks Continue Aspirin twice a day x 6 weeks [place] [facility] [place] [facility] [place]: --you will also have your first out patient PT eval on the day of your post op appt-so please plan on being in the office that day for an extended period of time.
--- NOTE | 2022-01-03 08:54 | P.F2F_ITS ---
Service Date Service Date: 01/03/22 Encounter Date of encounter: 01/03/22 Reasons for Services Signs and symptoms assessed: Pt. is considered homebound due to recent surgery. Unable to drive, poor balance, poor gait mechanics. Reason for physical therapy: home safety and mobility, therapeutic exercises, restore joint function, gait/transfer training, assess need for DME and ADL training Homebound: Leaving the home is medically contraindicated at this time without the asist of a device and/or another person due th the listed conditions above and below. Reason homebound: unsteady gait / fall risk, leg weakness, pain with ambulation, pain with transfers, poor balance / fall risk and unable to drive Homebound supporting statement: Pt. is considered homebound due to recent surgery. Unable to drive, poor balance, poor gait mechanics. Certification: Based on the above findings, I certify that this patient is confined to the home and needs intermittent shelter care, physical therapy and/or speech therapy, or continues to need occupational therapy. The patient is under my care, and I have initiated the establishment of the plan of care. The patient will be followed by a physician who will periodically review the plan of care.
--- NOTE | 2022-01-03 09:02 | MHC.CM.PN ---
Pt d/c'd home w/ [facility] @ [place].
--- NOTE | 2022-01-03 09:04 | HO.PM.IMPN ---
Subjective Subjective Date of Service: 01/03/22 Interval History: f/u on medical consultation. Status post knee surgery Interval history: Doing well, pain is controlled, eager to go home. Review of Systems Pain in the operated knee. No fever or chill. No headache no shortness of breath no chest pain. Physical Exam Vital Signs: Vital Signs: Last Vital Signs Temp 98.8 F 01/03/22 08:00 Pulse 85 01/03/22 08:00 Resp 17 01/03/22 08:00 BP 128/60 01/03/22 08:00 Pulse Ox 98 01/03/22 08:00 O2 Del Method 01/03/22 08:00 BMI result Body Mass Index 33.5 Const: Other: General: AO X 3, no acute distress Resp: CTA bilateral CVS: S1,S2,RRR GI: +BS, NT, no distention Skin: No rash, dressing in place on the left knee. Neuro: motor grossly intact Psych: appropriate affect Objective Data Active Medications Acetaminophen (Acetaminophen 325 Mg Tablet) 650 mg PO Q6H PRN PRN Reason: Pain, Mild (Pain Scale 1-3) Aspirin (Aspirin 325 Mg Tablet) 325 mg PO BID [facility] Last Admin: 01/03/22 07:35 Dose: 325 mg Documented By: JINA Atorvastatin Calcium (Atorvastatin Calcium 40 Mg Tablet) 40 mg PO DAILY [facility] Last Admin: 01/03/22 07:35 Dose: 40 mg Documented By: JINA Celecoxib (Celecoxib 200 Mg Capsule) 200 mg PO BID [facility] Last Admin: 01/03/22 07:35 Dose: 200 mg Documented By: JINA Docusate Sodium (Docusate Sodium 100 Mg Capsule) 100 mg PO BID [facility] Last Admin: 01/03/22 07:36 Dose: 100 mg Documented By: JINA Hydrochlorothiazide (Hydrochlorothiazide 12.5 Mg Tablet) 12.5 mg PO DAILY [facility]; Protocol Last Admin: 01/03/22 07:34 Dose: 12.5 mg Documented By: JINA Lactated Ringer's (Lr) 1,000 mls @ 100 mls/hr IVCONT .Q10H [facility] Last Admin: 01/03/22 02:22 Dose: 100 mls/hr Documented By: VAN Ketorolac Tromethamine (Ketorolac Tromethamine 15 Mg/Ml Vial) 15 mg IVPUSH Q6H [facility] Last Admin: 01/03/22 07:36 Dose: 15 mg Documented By: JINA Lisinopril (Lisinopril 10 Mg Tablet) 10 mg PO DAILY [facility]; Protocol Metoprolol Succinate (Metoprolol Succinate Er 25 Mg Tab.Er.24h) 25 mg PO DAILY [facility]; Protocol Last Admin: 01/03/22 07:35 Dose: 25 mg Documented By: JINA Ondansetron HCl (Ondansetron Hcl 4 Mg/2 Ml Vial) 4 mg IVPUSH Q8H PRN PRN Reason: Nausea and Vomiting Oxycodone HCl (Oxycodone Hcl Immed Release 5 Mg Tablet) 10 mg PO Q4H PRN PRN Reason: Pain, Moderate (Pain Scale 4-6 Last Admin: 01/02/22 13:04 Dose: 10 mg Documented By: FRANSISCO Oxycodone HCl (Oxycodone Hcl Er 10 Mg Tab.Er.12h) 10 mg PO BID [facility] Last Admin: 01/03/22 07:36 Dose: 10 mg Documented By: JINA Sodium Chloride (0.9 % Sodium Chloride Flush 3 Ml Syringe) 3 ml IVFLUSH QSHIFT [facility] Last Admin: 01/03/22 07:36 Dose: Not Given Documented By: JINA Non-Admin Reason: IV Running Labs CBC & Chem 7: 01/03/22 05:35 01/03/22 05:35 Labs: Laboratory Results - last 24 hr 01/03/22 01/03/22 05:35 05:35 MCV 84.7 MCH 28.3 MCHC 33.5 RDW 12.8 Plt Count 118 L MPV 9.9 Immature Gran % (Auto) 0.5 H Neut % (Auto) 77.5 H Lymph % (Auto) 9.2 L [place] % (Auto) 7.4 Eos % (Auto) 5.0 H Baso % (Auto) 0.4 Lymph # (Auto) 0.7 L [place] # (Auto) 0.6 Eos # (Auto) 0.4 Baso # (Auto) 0.0 Abs Immat Gran (auto) 0.04 H Absolute Neuts (auto) 6.1 Absolute Nucleated RBC 0.000 Nucleated RBC % (auto) 0.0 Anion Gap 13 Estim Creat Clear Calc 54.2 Estimated GFR > 60 Fasting Glucose 92 Calcium 8.8 Assessment and Plan (1) History of arthroplasty of left knee: Status: Acute (2) HTN (hypertension): Status: Acute (3) Primary osteoarthritis of left knee: Status: Acute Plan 76/F with HTN, HLD, ILD, OA of knee s/p L TKR today 1/ HTN--BP presently within normal limits. Continue hydrochlorothiazide, metoprolol. Hold lisinopril 40 mg p.o. daily. Restart lisinopril at 10 mg daily. 2/HLD-continue rosuvastatin or equivalent 3/s/p LTK management by surgery 4/ ILD--no sob, goes to pulmonary rehab DVT p: ASA Need for inapatient: Defer to ortho Medically okay to discharge. Reduce lisinopril to 10 mg daily at discharge. Quality Stroke Does the patient have a stroke diagnosis?: No VTE Prior VTE?: No VTE Risk Level:: Surgical - very high VTE Device Contraindication: N/A - Device Ordered VTE Drug Contraindication: N/A - Med Ordered
[2022-01-03] MEDS: lisinopriL 10 MG TABLET PO (09:15)
[2022-01-03 09:26] VITALS: BP 128/60; PULSE 85; O2SAT 98
[2022-01-03] MEDS: oxyCODONE HCl Immed Release 5 MG TABLET 10 MG PO (09:32)
--- NOTE | 2022-01-07 16:27 | P.OP_ITS ---
Operative Note Operative Note Date of Service: 01/01/22 Narrative: Date of Service: 01/01/22 Pre-op diagnosis: Left knee OA Post-op diagnosis: same Procedure: Left TKA Implants: [place] [employer] cemented posterior stabilized 07/19/10 Surgeon: Adriel Gardner MD Anesthesia: regional and spinal Was an Architecture Consultant used for this Procedure?: Yes Architecture Consultant: Pro Good Estimated blood loss (mL): 200 IV fluids (mL): 1,000 Pathology: other Condition: stable Disposition: PACU Procedure in detail: The patient was brought to the operating room and prepped and draped in standard sterile fashion. A time-out was called to identify proper site proper procedure proper surgeon and IV antibiotics were administered. 1 g of IV tranexamic acid was administered. I began by making a midline incision to the retinaculum and performed a medial parapatellar arthrotomy. The patella was translated laterally and the knee was flexed up. There was severe tricompartmental eburnation. I performed a small medial peel and resected the infrapatellar fat pad. [place]'s line was then used to drill my intramedullary femoral guide and my distal femur cut of 10 mm was made in 5 degrees of valgus while protecting the soft tissues. I then measured a # 3 femur and placed my cutting guide and made my anterior posterior and chamfer cuts protecting the soft tissues at all times. I then made my box but removing the PCL. Once I was satisfied with my cuts I turned my attention to the tibia. I removed the meniscus medially and laterally and , using an external cutting guide, in line with the tibial crest and the third ray, I made my distal tibial cut in 0 deg slope of while protecting the posterior soft tissues at all times. An extension block was used to confirm appropriate amount of bony resection. I then sized a #3 tibia and once I was satisfied that there was complete tibial coverage I placed my trial and with the trial femur in place took the knee through range of motion. I was satisfied with the extension and flexion as well as the stability and balance at 0, 30 and 90 degrees. I then turned my attention to the patella where I removed 1 cm from the undersurface of the patella and then trialed a 29a patellar button. Again the knee was taken through range of motion I was satisfied with the tracking. I then returned to the femur and drilled my femoral lug holes and prepared the tibia. A femoral bone plug was placed and the knee was irrigated copiously. I then cemented the patella, tibia and femur in standard fashion while applying axial compression. I trialed different inserts until I selected a #[id number]. The final insert was placed and a 3 minutes iodine soak with local TXA was performed. The knee was then closed with a running Quill suture, a 3 0 Vicryl and best on the skin. Patient was then placed in sterile dressing and brought to recovery room in stable condition there were no known complications.
== END 2022-01-03 10:30 | disposition home health service (06) | DRG 470 ==
LOC: HO.SSSA 12:12 → HO.S3 16:42
PROVIDERS: Nurse Practitioner; Physician Assistant; Admitting Provider Orthopaedic Surgery; PCP Student in an Organized Health Care Education/Training Program; Visit Provider Orthopaedic Surgery
PROC: 0SRD0J9 Replacement of Left Knee Joint with Synthetic Substitute, Cemented, Open Approach (ICD-10-PCS; CPT 27447; principal; 2022-01-01 13:50)
DX: M17.12 Unilateral primary osteoarthritis, left knee (principal); J84.9 Interstitial pulmonary disease, unspecified; I11.9 Hypertensive heart disease without heart failure; E78.5 Hyperlipidemia, unspecified; Z20.822 Contact with and (suspected) exposure to COVID-19; Z85.828 Personal history of other malignant neoplasm of skin; Z87.891 Personal history of nicotine dependence; Z88.5 Allergy status to narcotic agent; Z79.899 Other long term (current) drug therapy
CPT/HCPCS: 27447; 36415; 73560; 80048; 85014; 85018; 85025; 86850; 86900; 86901; 87635; 87640; 87641; 88305; 88311; 93005; 97110; 97116; 97162; C1713; C1776; J0690; J1885; J2250; J2795

== ENCOUNTER → 2022-01-17 13:21 | Outpatient (BNVA) | payer MEDICARE, SELFPAY | PROVIDERS: PCP Student in an Organized Health Care Education/Training Program; Visit Provider Physician Assistant | DX: Z47.1 Aftercare following joint replacement surgery (principal); Z96.652 Presence of left artificial knee joint | CPT/HCPCS: 99212 ==

== ENCOUNTER → 2022-02-18 13:19 | Outpatient (BNVA) | payer MEDICARE, SELFPAY | PROVIDERS: PCP Student in an Organized Health Care Education/Training Program; Visit Provider Physician Assistant | DX: Z96.652 Presence of left artificial knee joint (principal) | CPT/HCPCS: 99212 ==

== ENCOUNTER 2022-04-01 08:28 | Outpatient (REF) | payer MEDICARE, SELFPAY ==
--- NOTE | ~2022-04-01 | XR_ITS ---
EXAMINATION: XR KNEE, LEFT XR KNEES, STANDING BILATERAL CLINICAL INFORMATION: Left knee pain. COMPARISON: 01/01/2022 TECHNIQUE: Standing view both knees with 2 additional views left knee. FINDINGS: Bilateral knee prostheses are present. Since the prior study, surgical best have been removed. The prosthesis appears in good position. No evidence of loosening or fracture. XR/XR knee standing BI IMPRESSION: Bilateral knee prostheses in good position.
--- NOTE | ~2022-04-01 | XR_ITS ---
EXAMINATION: XR KNEE, LEFT XR KNEES, STANDING BILATERAL CLINICAL INFORMATION: Left knee pain. COMPARISON: 01/01/2022 TECHNIQUE: Standing view both knees with 2 additional views left knee. FINDINGS: Bilateral knee prostheses are present. Since the prior study, surgical best have been removed. The prosthesis appears in good position. No evidence of loosening or fracture. XR/XR knee LT 2V IMPRESSION: Bilateral knee prostheses in good position.
== END 2022-04-01 08:29 | disposition home or self-care (01) ==
LOC: HO.HOSX 08:28
PROVIDERS: Visit Provider Physician Assistant
DX: M25.561 Pain in right knee (principal); M25.562 Pain in left knee
CPT/HCPCS: 73560; 73565; 99212

== ENCOUNTER → 2022-04-01 13:06 | Outpatient (BNVA) | payer MEDICARE, SELFPAY | PROVIDERS: PCP Student in an Organized Health Care Education/Training Program; Visit Provider Orthopaedic Surgery | DX: Z47.1 Aftercare following joint replacement surgery (principal); Z96.652 Presence of left artificial knee joint | CPT/HCPCS: 99212 ==